=== PATIENT | male | born 1970 | race Caucasian/White ===

== ENCOUNTER 2016-11-21 19:14 | Emergency (ER) | payer MEDICAID ==
[2016-11-21] MEDS ORDERED: HYDROcod/ACET 5/325 Prepack 6 PO ONE ×2 (20:44→20:55)
[2016-11-21] MEDS ORDERED: cefTRIAXone 1 GM VIAL IM STA (20:44)
--- NOTE | 2016-11-21 20:45 | ED Physician Documentation ---
PD HPI HEENT - Stated complaint Stated Complaint: TOOTH PX - Chief complaint Chief Complaint: Heent - History obtained from History obtained from: Patient - History of Present Illness Timing - onset: How many days ago (3) Timing - duration: Days (3) Timing - details: Gradual onset Pain level max: 8 Pain level now: 8 Location: Tooth (lower R molar) Improves: Nothing Worsens: Other (chewing) Associated symptoms: No: Fever, Congestion, Rhinorrhea, Trismus, Unable to swallow, Swollen nodes, Facial swelling, Headache, Cough - Additional information Additional information: has been unable to see his dentist. States drained the abscess at home. Continued pain. Review of Systems Constitutional: denies: Fever, Chills Respiratory: denies: Cough GI: denies: Abdominal Pain, Nausea, Vomiting Musculoskeletal: denies: Neck pain, Back pain Neurologic: denies: Focal weakness, Numbness, Headache PD PAST MEDICAL HISTORY - Past Medical History Past Medical History: Yes Cardiovascular: Hypertension Psych: Depression - Past Surgical History Past Surgical History: Yes - Present Medications Home Medications: Ambulatory Orders Medication Instructions Recorded Confirmed ARIPiprazole [Abilify] 5 mg PO DAILY 11/21/16 11/21/16 Hydrocodone/Acetaminophen 1 - 2 each PO Q6H PRN #14 tablet 11/21/16 [Hydrocodon-Acetaminophen 5-325] Losartan [Cozaar] 50 mg PO DAILY 11/21/16 11/21/16 Metoprolol Succinate 100 mg PO DAILY 11/21/16 11/21/16 Penicillin V Potassium 500 mg PO Q6HR #40 tablet 11/21/16 Quetiapine Fumarate [Seroquel] 50 mg PO DAILY 11/21/16 11/21/16 Venlafaxine HCl [Effexor Xr] 300 mg PO DAILY 11/21/16 11/21/16 - Allergies Allergies/Adverse Reactions: Allergies Allergy/AdvReac Type Severity Reaction Status Date / Time No Known Drug Allergies Allergy Verified 11/21/16 19:23 - Social History Does the pt smoke?: No Smoking Status: Never smoker Does the pt drink ETOH?: Yes Does the pt have substance abuse?: Yes Substance Use and Type: Marijuana - Immunizations Immunizations are current?: Yes PD ED PE NORMAL - Vitals Vital signs reviewed: Yes - General General: Alert and oriented X 3, No acute distress, Well developed/nourished - Neck Neck: Supple, no meningeal sign - Derm Derm: Warm and dry - Neuro Neuro: Alert and oriented X 3 - Psych Psych: Normal mood, Normal affect PD ED PE EXPANDED - HEENT HEENT Visual: 1 - swelling, tenderness (no drainable abscess.) Results - Vitals Vitals: Vital Signs - 24 hr 11/21/16 11/21/16 19:21 21:04 Temperature 36 C L 36.2 C L Heart Rate 87 88 Respiratory 16 18 Rate Blood Pressure 153/89 H 168/96 H O2 Saturation 98 98 Oxygen O2 Source Room air PD MEDICAL DECISION MAKING - ED course Complexity details: considered differential, d/w patient ED course: Patient is a 46-year-old male who presents to the emergency department with a right lower molar abscess that was drained at home. No drainage here. No abscess to drain. Will place on antibiotics and pain medication and have him follow-up closely with his dentist. Tetanus is up-to-date. Patient counseled regarding signs and symptoms for which I believe and urgent re-evaluation would be necessary. Patient with good understanding of and agreement to plan and is comfortable going home at this time This document was made in part using voice recognition software. While efforts are made to proofread this document, sound alike and grammatical errors may occur. Departure - Departure Disposition: 01 Home, Self Care Clinical Impression: Dental abscess Condition: Good Instructions: ED Abscess Dental Follow-Up: Sherrie Lee ARNP [Primary Care Provider] - Within 3 Days Prescriptions: Penicillin V Potassium 500 mg PO Q6HR #40 tablet Hydrocodone/Acetaminophen [Hydrocodon-Acetaminophen 5-325] 1 - 2 each PO Q6H PRN #14 tablet PRN Reason: pain Comments: Take all antibiotics until gone. Return if you worsen. Do not drink alcohol or drive while on narcotic pain medicine. Note that many narcotic pain relievers also contain tylenol/acetaminophen. Please ensure that your total dose of acetaminophen from all sources does not exceed 3 grams (3000mg) per day. You may constipated on this medication, take a stool softener such as "Colace" twice a day while you are on it. Also recommend a [id number] laxative such as senna or MiraLAX any day that you do not have a bowel movement. If you received narcotic pain medication in the emergency department, do not drive or operate machinery for the next 24 hours. Discharge Date/Time: 11/21/16 21:04
[2016-11-21] MEDS ORDERED: cefTRIAXone 1 GM VIAL ONE (20:55)
[2016-11-21] MEDS ORDERED: LIDOCAINE 1% 2 ML VIAL ONE (20:55)
[2016-11-21 21:06] VITALS: BP 168/96
== END 2016-11-21 21:04 | disposition home or self-care (01) ==
LOC: ED 19:14
DX: K04.7 Periapical abscess without sinus (principal); I10 Essential (primary) hypertension
CPT/HCPCS: 96372; 99283

== ENCOUNTER 2017-01-16 12:53 | Emergency (ER) | payer MEDICAID ==
[2017-01-16 12:58] VITALS: BP 155/81
--- NOTE | 2017-01-16 13:05 | ED Physician Documentation ---
History of Present Illness - Stated complaint Stated Complaint: MED REFILL - Chief complaint Chief Complaint: General - History obtained from History obtained from: Patient - History of Present Illness Timing: Other (He was dismissed from his psychiatrist's office because of poor attendance. He ran out of his Abilify, he thought he would be okay but now realizes he is more depressed and having some paranoia without it and he requests a refill. He plans to follow-up with his primary care physician for further refills. He denies suicidal or homicidal ideation.) Review of Systems Constitutional: reports: Reviewed and negative Cardiac: reports: Reviewed and negative Respiratory: reports: Reviewed and negative PD PAST MEDICAL HISTORY - Past Medical History Cardiovascular: Hypertension Psych: Depression - Past Surgical History Past Surgical History: Yes - Present Medications Home Medications: Ambulatory Orders Medication Instructions Recorded Confirmed ARIPiprazole [Abilify] 5 mg PO DAILY 11/21/16 01/16/17 Losartan [Cozaar] 50 mg PO DAILY 11/21/16 01/16/17 Metoprolol Succinate 100 mg PO DAILY 11/21/16 01/16/17 Quetiapine Fumarate [Seroquel] 50 mg PO DAILY 11/21/16 01/16/17 Venlafaxine HCl [Effexor Xr] 300 mg PO DAILY 11/21/16 01/16/17 ARIPiprazole [Abilify] 5 mg PO DAILY #30 tablet 01/16/17 - Allergies Allergies/Adverse Reactions: Allergies Allergy/AdvReac Type Severity Reaction Status Date / Time No Known Drug Allergies Allergy Verified 01/16/17 12:57 - Social History Does the pt smoke?: No Smoking Status: Never smoker Does the pt drink ETOH?: Yes Does the pt have substance abuse?: Yes - Immunizations Immunizations are current?: Yes PD ED PE NORMAL - Vitals Vital signs reviewed: Yes - General General: Alert and oriented X 3, No acute distress - Derm Derm: Normal color, Warm and dry - Neuro Neuro: Alert and oriented X 3, Normal speech - Psych Psych: Normal mood, Normal affect Results - Vitals Vitals: Vital Signs - 24 hr 01/16/17 12:54 Temperature 36.6 C Heart Rate 70 Respiratory 16 Rate Blood Pressure 155/81 H O2 Saturation 98 Oxygen O2 Source Room air Departure - Departure Disposition: 01 Home, Self Care Clinical Impression: Depression Qualifiers: Depression Type: major depressive disorder Major depression recurrence: recurrent Active/Remission status: currently active Major depression episode severity: moderate Qualified Code(s): F33.1 - Major depressive disorder, recurrent, moderate Condition: Good Record reviewed to determine appropriate education?: Yes Instructions: ED Depression Prescriptions: ARIPiprazole [Abilify] 5 mg PO DAILY #30 tablet Comments: Call your doctor to arrange a follow-up appointment, make the next available appointment. In the interim, return anytime if worse or if new symptoms develop. Your blood pressure was elevated today on check into the emergency department. This does not mean that you have hypertension, it is a common phenomenon to come to the emergency department and have elevated blood pressure. I recommend that you see your primary care physician within the week to have it rechecked when you are feeling better.
== END 2017-01-16 13:14 | disposition home or self-care (01) ==
LOC: ED 12:53
DX: F33.1 Major depressive disorder, recurrent, moderate (principal); I10 Essential (primary) hypertension
CPT/HCPCS: 99282; 99283

== ENCOUNTER 2017-06-06 10:47 | Emergency (ER) | payer MEDICAID ==
[2017-06-06 10:59] VITALS: BP 159/89
[2017-06-06] MEDS ORDERED: AMOX/CLAV 875 MG/125 MG TABLET PO STA (12:02)
[2017-06-06] MEDS ORDERED: TETANUS/DIPHTHERIA/PERTUSSIS 0.5 ML SYRINGE IM ONE (12:02)
--- NOTE | 2017-06-06 12:33 | ED Physician Documentation ---
History of Present Illness - Stated complaint Stated Complaint: DOG BITE - Chief complaint Chief Complaint: Wound - Additonal information Additional information: hx from pt 47 male no DM or immune compromise to ED after being bit by a pet pit bull at a [employer] party last night per pt per immunized Review of Systems Skin: reports: Bite / sting Immunocompromised: denies: Immunocompromised PD PAST MEDICAL HISTORY - Past Medical History Past Medical History: Yes Cardiovascular: Hypertension Psych: Depression - Past Surgical History Past Surgical History: Yes - Present Medications Home Medications: Ambulatory Orders Medication Instructions Recorded Confirmed Losartan [Cozaar] 50 mg PO DAILY 11/21/16 06/06/17 Metoprolol Succinate 100 mg PO DAILY 11/21/16 06/06/17 Quetiapine Fumarate [Seroquel] 50 mg PO DAILY 11/21/16 06/06/17 Venlafaxine HCl [Effexor Xr] 300 mg PO DAILY 11/21/16 06/06/17 ARIPiprazole [Abilify] 5 mg PO DAILY #30 tablet 01/16/17 06/06/17 Amox/Clav 875/125 [Augmentin] 1 each PO Q12H #20 tablet 06/06/17 - Allergies Allergies/Adverse Reactions: Allergies Allergy/AdvReac Type Severity Reaction Status Date / Time No Known Drug Allergies Allergy Verified 06/06/17 10:59 - Social History Does the pt smoke?: No Smoking Status: Never smoker Does the pt drink ETOH?: Yes Does the pt have substance abuse?: Yes - Immunizations Immunizations are current?: Yes - POLST Patient has POLST: No PD ED PE NORMAL - Vitals Vital signs reviewed: Yes - Cardiac Cardiac: RRR - Respiratory Respiratory: No respiratory distress, Clear bilaterally - Derm Derm: Other (approx 2 cm aged slightly gaping lac to R bicep and numwerois more superficial punctures and abrasions to R forearm with some surrounding erythema and swelling, MSV intact) Results - Vitals Vitals: Vital Signs - 24 hr 06/06/17 10:54 Temperature 36.5 C Heart Rate 87 Respiratory 18 Rate Blood Pressure 159/89 H O2 Saturation 100 Oxygen O2 Source Room air PD MEDICAL DECISION MAKING - ED course ED course: wounds cleansed tdap given already looks infected so rx for 10 days Departure - Departure Disposition: 01 Home, Self Care Clinical Impression: Animal bite with open wound Condition: Good Instructions: ED Bite Animal General Follow-Up: Sherrie Lee ARNP [Primary Care Provider] - (for a wound check in 48 hr - if cannot be seen by PMD for follow up come back to the ER) Prescriptions: Amox/Clav 875/125 [Augmentin] 1 each PO Q12H #20 tablet
== END 2017-06-06 12:42 | disposition home or self-care (01) ==
LOC: ED 10:47
DX: S41.151A Open bite of right upper arm, initial encounter (principal); S51.851A Open bite of right forearm, initial encounter; L08.9 Local infection of the skin and subcutaneous tissue, unspecified; W54.0XXA Bitten by dog, initial encounter; Z23 Encounter for immunization; I10 Essential (primary) hypertension
CPT/HCPCS: 90471; 90715; 99283; A9270

== ENCOUNTER 2019-02-25 12:39 | Emergency (ER) | payer MEDICAID ==
[2019-02-25 12:57] VITALS: BP 187/103
--- NOTE | 2019-02-25 13:49 | ED Physician Documentation ---
PD HPI HEENT - Stated complaint Stated Complaint: TOOTH PX - Chief complaint Chief Complaint: Heent PD PAST MEDICAL HISTORY - Past Medical History Cardiovascular: Hypertension Psych: Depression - Past Surgical History Past Surgical History: Yes - Present Medications Home Medications: Ambulatory Orders Medication Instructions Recorded Confirmed Losartan [Cozaar] 50 mg PO DAILY 11/21/16 06/06/17 Metoprolol Succinate 100 mg PO DAILY 11/21/16 06/06/17 Quetiapine Fumarate [Seroquel] 50 mg PO DAILY 11/21/16 06/06/17 Venlafaxine HCl [Effexor Xr] 300 mg PO DAILY 11/21/16 06/06/17 ARIPiprazole [Abilify] 5 mg PO DAILY #30 tablet 01/16/17 06/06/17 Amox/Clav 875/125 [Augmentin] 1 each PO Q12H #20 tablet 06/06/17 - Allergies Allergies/Adverse Reactions: Allergies Allergy/AdvReac Type Severity Reaction Status Date / Time No Known Drug Allergies Allergy Verified 02/25/19 12:53 - Social History Does the pt smoke?: No Smoking Status: Never smoker Does the pt drink ETOH?: Yes Does the pt have substance abuse?: Yes - Immunizations Immunizations are current?: Yes - POLST Patient has POLST: No Results - Vitals Vitals: Vital Signs - 24 hr 02/25/19 12:53 Temperature 37.2 C Heart Rate 76 Respiratory 18 Rate Blood Pressure 187/103 H O2 Saturation 96 Oxygen O2 Source Room air PD MEDICAL DECISION MAKING - ED course ED course: Patient had been brought back to the room and as I went to go see him he was not present. We looked in the waiting room and bathrooms etc. and he apparently left before seeing. Departure - Departure Disposition: ED Left Without Being Seen Discharge Date/Time: 02/25/19 14:14
== END 2019-02-25 14:14 | disposition left against medical advice (07) ==
LOC: ED 12:39
DX: Z53.21 Procedure and treatment not carried out due to patient leaving prior to being seen by health care provider (principal); I10 Essential (primary) hypertension